=== PATIENT | male | born 1995 | race Caucasian/White ===

== ENCOUNTER 2022-12-26 17:06 | Emergency (ER) | payer SELFPAY ==
[2022-12-26] MEDS ORDERED: Cyclobenzaprine 10 MG Tab PO STA (17:34)
[2022-12-26] MEDS ORDERED: Ondansetron 4 MG Tab.DIS PO STA (17:34)
[2022-12-26] MEDS ORDERED: Acetaminophen 500 MG Tab PO STA (17:34)
[2022-12-26] MEDS ORDERED: Methadone 10 MG Tab PO STA (17:39)
== END 2022-12-26 18:16 | disposition home or self-care (01) ==
LOC: MW.ED 17:06
DX: F11.23 Opioid dependence with withdrawal (principal); F19.10 Other psychoactive substance abuse, uncomplicated
CPT/HCPCS: 99283; A9270

== ENCOUNTER 2022-12-27 13:51 | Emergency (ER) | payer SELFPAY ==
[2022-12-27] MEDS ORDERED: Sodium Chloride 0.9% 2.5 ML Syringe FLUSH PRN (13:59)
[2022-12-27] MEDS ORDERED: Sodium Chloride 0.9% 10 ML Syringe FLUSH PRN (13:59)
[2022-12-27] MEDS ORDERED: Sodium Chloride 0.9% 1,000 ML IV ONE ×2 (14:00→16:03)
[2022-12-27] MEDS ORDERED: Ondansetron 4 MG/2 ML SDV IVPUSH ONE (14:14)
[2022-12-27 14:34] LABS: BASOPHILS PERCENT AUTO 0.2 % (0.0-1.5); EOSINOPHILS PERCENT AUTO 0.1 % (0.0-7.0); HEMATOCRIT 44.3 % (38.0-50.0); HEMOGLOBIN 15.6 g/dL (13.0-17.0); LYMPHOCYTES ABSOLUTE AUTO 1.3 K/uL (0.6-2.4); LYMPHOCYTES PERCENT AUTO 14.4 % (16.0-40.0); MEAN CORPUSCULAR HEMOGLOBIN 31.2 pg (27.0-32.0); MEAN CORPUSCULAR HGB CONC 35.2 g/dL (31.0-37.0); MEAN CORPUSCULAR VOLUME 88.6 fL (80.0-98.0); MONOCYTES ABSOLUTE AUTO 0.4 K/uL (0.0-0.8); MONOCYTES PERCENT AUTO 4.7 % (0.0-15.0); NEUTROPHILS PERCENT AUTO 80.6 % (48.0-80.0); PLATELET COUNT,PLT 183 K/uL (150-400)
[2022-12-27 14:55] LABS: A/G RATIO 1.5 (0.9-1.6); ALANINE AMINOTRANSFERASE,ALT 27 IU/L (14-63); ALBUMIN 4.4 g/dL (3.4-5.0); ALKALINE PHOSPHATASE 88 U/L (46-116); ASPARTATE AMNIOTRANSFERASE,AST 13 IU/L (15-37); BILIRUBIN TOTAL 0.4 mg/dL (0.2-1.0); BLOOD UREA NITROGEN,BUN 14 mg/dL (7.0-18.0); CARBON DIOXIDE,CO2 24.9 mmol/L (21.0-32.0); CHLORIDE,CL 102 mmol/L (98-107); CREATININE 0.9 mg/dL (0.8-1.3); EST CRCL DRUG DOSING (CG) 94.08 mL/min; GLUCOSE RANDOM 132 mg/dL (74-106); LIPASE 46 U/L (73-393); POTASSIUM,K 3.8 mmol/L (3.5-5.1); PROTEIN TOTAL,TP 7.4 g/dL (6.4-8.2); SODIUM,NA 138 mmol/L (136-148)
[2022-12-27 14:56] LABS: ESTIMATED GFR 119 mL/min (>60); ETHANOL BLOOD MEDICAL < 3.0 mg/dL
[2022-12-27 15:30] LABS: AMPHETAMINES SCREEN, URINE PRESUMPTIVE POSITIVE (CUTOFF=500); BARBITURATE SCREEN,URINE NEGATIVE (CUTOFF=200); BENZODIAZEPINES SCREEN,URINE PRESUMPTIVE POSITIVE (CUTOFF=150); BUPRENORPHINE SCREEN,URINE NEGATIVE (CUTOFF=10); METHADONE SCREEN, URINE PRESUMPTIVE POSITIVE (CUTOFF=200); METHAMPHETAMINES SCREEN, URINE PRESUMPTIVE POSITIVE (CUTOFF=500); OXYCODONE SCREEN,URINE NEGATIVE (CUT0FF=100); PCP SCREEN,URINE NEGATIVE (CUTOFF=25); PROPOXYPHENE SCREEN,URINE NEGATIVE (CUTOFF=300); THC SCREEN,URINE 20 NG/ML PRESUMPTIVE POSITIVE (CUTOFF=50)
[2022-12-27] MEDS ORDERED: cloNIDine 0.1 MG Tab PO ONE (17:17)
== END 2022-12-27 17:52 | disposition home or self-care (01) ==
LOC: MW.ED 13:51
DX: F11.23 Opioid dependence with withdrawal (principal)
CPT/HCPCS: 36415; 80053; 80305; 80307; 83690; 85025; 93005; 96361; 96374; 99284; A9270; J2405; J3490; J7030; 93010

== ENCOUNTER 2023-10-29 22:25 | Observation (INO) | payer MEDICAID ==
[2023-10-29 22:52] LABS: BASOPHILS ABSOLUTE AUTO 0.02 K/uL (0.00-0.20); BASOPHILS PERCENT AUTO 0.2 % (0.0-1.0); EOSINOPHILS PERCENT AUTO 1.1 % (0.0-6.0); HEMATOCRIT 40.8 % (42.0-52.0); HEMOGLOBIN 14.6 g/dL (14.0-18.0); IMMATURE GRAN ABSOLUTE AUTO 0.02 K/uL (0.00-0.05); IMMATURE GRAN PERCENT AUTO 0.2 % (0.0-0.4); LYMPHOCYTES ABSOLUTE AUTO 2.48 K/uL (1.00-4.80); LYMPHOCYTES PERCENT AUTO 27.8 % (24.0-44.0); MEAN CORPUSCULAR HEMOGLOBIN 32.2 pg (28.0-32.0); MEAN CORPUSCULAR HGB CONC 35.8 g/dL (32.0-36.0); MEAN CORPUSCULAR VOLUME 89.9 fL (83.0-99.0); MEAN PLATELET VOLUME 8.6 fL (9.4-12.4); MONOCYTES ABSOLUTE AUTO 0.87 K/uL (0.00-0.80); MONOCYTES PERCENT AUTO 9.8 % (0.0-8.0); NEUTROPHILS ABSOLUTE AUTO 5.42 K/uL (1.80-7.70); NEUTROPHILS PERCENT AUTO 60.9 % (41.0-71.0); PLATELET COUNT,PLT 289 K/uL (150-400); RED BLOOD CELL COUNT 4.54 M/uL (4.52-5.90); WHITE BLOOD CELL COUNT,WBC 8.91 K/uL (3.9-11.3)
[2023-10-29] MEDS: Sodium Chloride 0.9% 10 ML Syringe FLUSH PRN (22:54)
[2023-10-29] MEDS: Sodium Chloride 0.9% 2.5 ML Syringe FLUSH PRN (22:54)
[2023-10-29] MEDS: Ondansetron 4 MG/2 ML SDV IVPUSH ONE (22:54)
[2023-10-29] MEDS: Pantoprazole 80 MG in Sodium Chloride 0.9% 10 ML IVPUSH ONE (22:54)
[2023-10-29] MEDS: Sodium Chloride 0.9% 1,000 ML IV ONE (22:54)
[2023-10-29] MEDS: Famotidine 20 MG/2 ML SDV IVPUSH ONE (22:54)
[2023-10-29] MEDS: Morphine 2 MG/ML SYRINGE IVPUSH ONE (22:56)
[2023-10-29] MEDS: droPERidol 5 MG/2 ML SDV IVPUSH ONE (23:08)
[2023-10-29 23:20] LABS: A/G RATIO 1.3 (0.9-1.6); ALANINE AMINOTRANSFERASE,ALT 37 IU/L (14-63); ALBUMIN 4.2 g/dL (3.4-5.0); ALKALINE PHOSPHATASE 72 U/L (46-116); ASPARTATE AMNIOTRANSFERASE,AST 25 IU/L (15-37); BILIRUBIN TOTAL 0.5 mg/dL (0.2-1.0); BLOOD UREA NITROGEN,BUN 17 mg/dL (7.0-18.0); CALCIUM 9.5 mg/dL (8.5-10.1); CARBON DIOXIDE,CO2 23.2 mmol/L (21.0-32.0); CHLORIDE,CL 99 mmol/L (98-107); CREATININE 0.8 mg/dL (0.8-1.3); EST CRCL DRUG DOSING (CG) 118.52 mL/min; GLUCOSE RANDOM 109 mg/dL (74-106); LIPASE 15 U/L (16-77); MAGNESIUM 1.9 mg/dL (1.8-2.4); POTASSIUM,K 3.2 mmol/L (3.5-5.1); PROTEIN TOTAL,TP 7.5 g/dL (6.4-8.2); SODIUM,NA 138 mmol/L (136-148)
[2023-10-29 23:29] LABS: ESTIMATED GFR 123 mL/min (>60)
[2023-10-29] MEDS: Ketorolac 30 MG/ML SDV IVPUSH ONE (23:38)
[2023-10-29] MEDS: Metoclopramide 10 MG/2 ML SDV IVPUSH ONE (23:40)
[2023-10-29] MEDS: diphenhydrAMINE 50 MG/ML SDV IVPUSH ONE (23:41)
[2023-10-29] MEDS: Iopamidol 755 MG/ML 500 ML Multipack Bottle IVPUSH ONE (23:59)
[2023-10-30] MEDS: Lactated Ringers 1,000 ML IV ONE (01:09)
[2023-10-30] MEDS ORDERED: Acetaminophen 325 MG Tab PO PRN (01:22)
[2023-10-30] MEDS ORDERED: Ketorolac 30 MG/ML SDV IVPUSH PRN (01:23)
[2023-10-30] MEDS ORDERED: Ondansetron 4 MG/2 ML SDV IVPUSH PRN (01:25)
[2023-10-30] MEDS: Potassium Chloride 20 MEQ Tab.ER PO ONE (01:46)
[2023-10-30] MEDS: Lactated Ringers 1,000 ML IV SCH (02:31)
[2023-10-30 06:25] LABS: BASOPHILS ABSOLUTE AUTO 0.03 K/uL (0.00-0.20); BASOPHILS PERCENT AUTO 0.4 % (0.0-1.0); EOSINOPHILS ABSOLUTE AUTO 0.11 K/uL (0.00-0.45); EOSINOPHILS PERCENT AUTO 1.6 % (0.0-6.0); HEMATOCRIT 37.3 % (42.0-52.0); HEMOGLOBIN 13.1 g/dL (14.0-18.0); IMMATURE GRAN ABSOLUTE AUTO 0.02 K/uL (0.00-0.05); IMMATURE GRAN PERCENT AUTO 0.3 % (0.0-0.4); LYMPHOCYTES ABSOLUTE AUTO 2.66 K/uL (1.00-4.80); LYMPHOCYTES PERCENT AUTO 38.6 % (24.0-44.0); MEAN CORPUSCULAR HEMOGLOBIN 32.6 pg (28.0-32.0); MEAN CORPUSCULAR HGB CONC 35.1 g/dL (32.0-36.0); MEAN CORPUSCULAR VOLUME 92.8 fL (83.0-99.0); MEAN PLATELET VOLUME 8.7 fL (9.4-12.4); MONOCYTES ABSOLUTE AUTO 0.73 K/uL (0.00-0.80); MONOCYTES PERCENT AUTO 10.6 % (0.0-8.0); NEUTROPHILS ABSOLUTE AUTO 3.35 K/uL (1.80-7.70); NEUTROPHILS PERCENT AUTO 48.5 % (41.0-71.0); PLATELET COUNT,PLT 247 K/uL (150-400); RED BLOOD CELL COUNT 4.02 M/uL (4.52-5.90)
[2023-10-30 06:49] LABS: CALCIUM 8.1 mg/dL (8.5-10.1); CARBON DIOXIDE,CO2 27.2 mmol/L (21.0-32.0); CREATININE 0.7 mg/dL (0.8-1.3); EST CRCL DRUG DOSING (CG) 135.45 mL/min; POTASSIUM,K 3.8 mmol/L (3.5-5.1)
[2023-10-30] MEDS: Pantoprazole 40 MG Tab.CR PO SCH (08:10)
== END 2023-10-30 12:10 | disposition home or self-care (01) ==
LOC: MW.ED 22:25 → MW.MS 10-30 01:03
PROVIDERS: ADMIT Family Medicine; ATTEND Family Medicine
DX: K52.9 Noninfective gastroenteritis and colitis, unspecified (principal); F17.210 Nicotine dependence, cigarettes, uncomplicated
CPT/HCPCS: 36415; 74177; 80048; 80053; 83690; 83735; 84484; 85025; 86850; 86900; 86901; 93005; 96361; 96374; 96375; 99285; A9270; C9113; J1200; J1790; J1885; J2405; J2765; J3490; J7030; J7120; Q9967; 93010; 99235; 99284; G0378

== ENCOUNTER 2023-10-31 03:53 | Emergency (ER) | payer MEDICAID ==
[2023-10-31] MEDS: Sodium Chloride 0.9% 1,000 ML IV ONE (04:15)
[2023-10-31] MEDS: droPERidol 5 MG/2 ML SDV IVPUSH ONE (04:15)
[2023-10-31] MEDS: Sodium Chloride 0.9% 2.5 ML Syringe FLUSH PRN (04:15)
[2023-10-31] MEDS: Ketorolac 30 MG/ML SDV IVPUSH ONE (04:15)
[2023-10-31] MEDS: Sodium Chloride 0.9% 10 ML Syringe FLUSH PRN (04:16)
[2023-10-31 04:34] LABS: BASOPHILS ABSOLUTE AUTO 0.03 K/uL (0.00-0.20); BASOPHILS PERCENT AUTO 0.3 % (0.0-1.0); EOSINOPHILS ABSOLUTE AUTO 0.21 K/uL (0.00-0.45); EOSINOPHILS PERCENT AUTO 1.9 % (0.0-6.0); HEMATOCRIT 42.7 % (42.0-52.0); HEMOGLOBIN 15.1 g/dL (14.0-18.0); IMMATURE GRAN ABSOLUTE AUTO 0.04 K/uL (0.00-0.05); IMMATURE GRAN PERCENT AUTO 0.4 % (0.0-0.4); LYMPHOCYTES ABSOLUTE AUTO 2.47 K/uL (1.00-4.80); LYMPHOCYTES PERCENT AUTO 22.5 % (24.0-44.0); MEAN CORPUSCULAR HEMOGLOBIN 32.5 pg (28.0-32.0); MEAN CORPUSCULAR HGB CONC 35.4 g/dL (32.0-36.0); MEAN CORPUSCULAR VOLUME 91.8 fL (83.0-99.0); MEAN PLATELET VOLUME 9.3 fL (9.4-12.4); MONOCYTES ABSOLUTE AUTO 0.97 K/uL (0.00-0.80); MONOCYTES PERCENT AUTO 8.8 % (0.0-8.0); NEUTROPHILS ABSOLUTE AUTO 7.27 K/uL (1.80-7.70); NEUTROPHILS PERCENT AUTO 66.1 % (41.0-71.0); PLATELET COUNT,PLT 304 K/uL (150-400); RED BLOOD CELL COUNT 4.65 M/uL (4.52-5.90); WHITE BLOOD CELL COUNT,WBC 10.99 K/uL (3.9-11.3)
[2023-10-31 04:49] LABS: A/G RATIO 1.1 (0.9-1.6); ALBUMIN 3.9 g/dL (3.4-5.0); BILIRUBIN TOTAL 0.4 mg/dL (0.2-1.0); CALCIUM 9.1 mg/dL (8.5-10.1); CARBON DIOXIDE,CO2 27.5 mmol/L (21.0-32.0); CREATININE 0.9 mg/dL (0.8-1.3); EST CRCL DRUG DOSING (CG) 101.01 mL/min; POTASSIUM,K 3.4 mmol/L (3.5-5.1); PROTEIN TOTAL,TP 7.3 g/dL (6.4-8.2)
[2023-10-31] MEDS: Iopamidol 755 MG/ML 500 ML Multipack Bottle IVPUSH ONE (04:50)
[2023-10-31 05:14] LABS: APPEARANCE,URINE CLEAR; BILIRUBIN,URINE NEGATIVE (NEGATIVE); COLOR,URINE YELLOW; GLUCOSE,URINE NEGATIVE (NEGATIVE); KETONES,URINE 15 mg/dL (NEGATIVE); LEUKOCYTE ESTERASE,URINE NEGATIVE (NEGATIVE); NITRITE,URINE NEGATIVE (NEGATIVE); OCCULT BLOOD,URINE NEGATIVE (NEGATIVE); PH,URINE 6.5 (5.0-8.0); PROTEIN,URINE NEGATIVE (NEGATIVE); UROBILINOGEN,URINE 0.2 EU/dL (<2.0)
[2023-10-31 05:25] LABS: AMPHETAMINES SCREEN, URINE PRESUMPTIVE POSITIVE (CUTOFF=500); BARBITURATE SCREEN,URINE NEGATIVE (CUTOFF=200); BENZODIAZEPINES SCREEN,URINE NEGATIVE (CUTOFF=150); BUPRENORPHINE SCREEN,URINE NEGATIVE (CUTOFF=10); METHADONE SCREEN, URINE NEGATIVE (CUTOFF=200); METHAMPHETAMINES SCREEN, URINE NEGATIVE (CUTOFF=500); OXYCODONE SCREEN,URINE NEGATIVE (CUT0FF=100); PCP SCREEN,URINE NEGATIVE (CUTOFF=25); THC SCREEN,URINE 20 NG/ML PRESUMPTIVE POSITIVE (CUTOFF=50)
== END 2023-10-31 05:36 | disposition home or self-care (01) ==
LOC: MW.ED 03:53
DX: K52.9 Noninfective gastroenteritis and colitis, unspecified (principal); F17.210 Nicotine dependence, cigarettes, uncomplicated; Z79.899 Other long term (current) drug therapy
CPT/HCPCS: 36415; 74177; 80053; 80305; 81003; 83690; 83735; 85025; 96361; 96374; 96375; 99284; J1790; J1885; J3490; J7030; Q9967

== ENCOUNTER 2023-11-01 10:17 | Emergency (ER) | payer MEDICAID ==
[2023-11-01] MEDS: Sodium Chloride 0.9% 1,000 ML IV ONE (10:55)
[2023-11-01] MEDS: Alum Hydro/Mag Hydro/Simeth XS 15 ML, Lidocaine 2% 5 ML PO ONE (10:56)
[2023-11-01 11:02] LABS: BASOPHILS ABSOLUTE AUTO 0.02 K/uL (0.00-0.20); BASOPHILS PERCENT AUTO 0.2 % (0.0-1.0); HEMATOCRIT 41.9 % (42.0-52.0); HEMOGLOBIN 14.7 g/dL (14.0-18.0); IMMATURE GRAN ABSOLUTE AUTO 0.03 K/uL (0.00-0.05); IMMATURE GRAN PERCENT AUTO 0.4 % (0.0-0.4); LYMPHOCYTES ABSOLUTE AUTO 0.62 K/uL (1.00-4.80); LYMPHOCYTES PERCENT AUTO 7.3 % (24.0-44.0); MEAN CORPUSCULAR HGB CONC 35.1 g/dL (32.0-36.0); MEAN CORPUSCULAR VOLUME 91.3 fL (83.0-99.0); MEAN PLATELET VOLUME 8.9 fL (9.4-12.4); MONOCYTES ABSOLUTE AUTO 0.25 K/uL (0.00-0.80); MONOCYTES PERCENT AUTO 2.9 % (0.0-8.0); NEUTROPHILS ABSOLUTE AUTO 7.62 K/uL (1.80-7.70); NEUTROPHILS PERCENT AUTO 89.2 % (41.0-71.0); PLATELET COUNT,PLT 319 K/uL (150-400); RED BLOOD CELL COUNT 4.59 M/uL (4.52-5.90); WHITE BLOOD CELL COUNT,WBC 8.54 K/uL (3.9-11.3)
[2023-11-01 11:28] LABS: A/G RATIO 1.1 (0.9-1.6); ALBUMIN 4.1 g/dL (3.4-5.0); BILIRUBIN TOTAL 0.2 mg/dL (0.2-1.0); CALCIUM 9.2 mg/dL (8.5-10.1); CARBON DIOXIDE,CO2 26.7 mmol/L (21.0-32.0); CREATININE 0.8 mg/dL (0.8-1.3); POTASSIUM,K 4.1 mmol/L (3.5-5.1); PROTEIN TOTAL,TP 7.7 g/dL (6.4-8.2)
[2023-11-01] MEDS: Sucralfate 1 GM Tab PO ONE (11:30)
[2023-11-01] MEDS: Pantoprazole 40 MG in Sodium Chloride 0.9% 10 ML IVPUSH ONE (11:30)
== END 2023-11-01 13:35 | disposition home or self-care (01) ==
LOC: MW.ED 10:17
DX: K29.70 Gastritis, unspecified, without bleeding (principal); Z75.8 Other problems related to medical facilities and other health care; Z79.899 Other long term (current) drug therapy
CPT/HCPCS: 36415; 76705; 80053; 83690; 85025; 96361; 96374; 99284; A9270; C9113; J3490; J7030

== ENCOUNTER 2024-10-09 07:05 | Day surgery (SDC) | payer MEDICAID, OTHER ==
[2024-10-09] MEDS ORDERED: Ondansetron 4 MG/2 ML SDV ONE (07:11)
[2024-10-09] MEDS ORDERED: Propofol 200 MG/20 ML SDV ONE (07:11)
[2024-10-09] MEDS ORDERED: Lidocaine 2% 5 ML SDV ONE (07:11)
[2024-10-09] MEDS ORDERED: Rocuronium Bromide 50 MG/5 ML Syringe ONE (07:11)
[2024-10-09] MEDS ORDERED: Ketorolac 30 MG/ML SDV ONE (07:11)
[2024-10-09] MEDS ORDERED: Sugammadex Sodium 200 MG/2 ML VIAL IV ONE (07:11)
[2024-10-09] MEDS ORDERED: fentaNYL 100 MCG/2 ML SDV ONE ×2 (07:11→09:31)
[2024-10-09] MEDS ORDERED: Dexamethasone 4 MG/ML 5 ML MDV ONE (07:11)
[2024-10-09] MEDS ORDERED: Ropivacaine 0.5% 5 MG/ML 30 ML SDV ONE (07:15)
[2024-10-09] MEDS ORDERED: Bupivacaine 0.25% 30 ML SDV ONE (07:15)
[2024-10-09] MEDS ORDERED: EPINEPHrine 1 MG/1 ML Amp ONE (07:15)
[2024-10-09] MEDS ORDERED: Bupivacaine 0.5% 30 ML SDV ONE (07:25)
[2024-10-09] MEDS: Pregabalin 75 MG Cap ONE (07:46)
[2024-10-09] MEDS ORDERED: Morphine 2 MG/ML SYRINGE IVPUSH PRN (08:05)
[2024-10-09] MEDS ORDERED: fentaNYL 50 MCG/ML SDV IVPUSH PRN (08:05)
[2024-10-09] MEDS ORDERED: Metoclopramide 10 MG/2 ML SDV IVPUSH PRN (08:05)
[2024-10-09] MEDS ORDERED: Ondansetron 4 MG/2 ML SDV IVPUSH PRN (08:05)
[2024-10-09] MEDS ORDERED: Naloxone 0.4 MG/ML SDV IVPUSH PRN (08:05)
[2024-10-09] MEDS ORDERED: Phenylephrine HCl In 0.9% NaCl 1 MG/10 ML Syringe IVPUSH PRN (08:05)
[2024-10-09] MEDS ORDERED: Albuterol 0.083% 2.5 MG/3 ML Neb Soln NEB PRN (08:05)
[2024-10-09] MEDS: Lactated Ringers 1,000 ML IV SCH (08:09)
[2024-10-09] MEDS ORDERED: ceFAZolin 1 GM Vial ONE (09:16)
[2024-10-09] MEDS: HYDROmorphone 1 MG/ML Syringe IVPUSH PRN (10:42)
[2024-10-10] MEDS ORDERED: Lactated Ringers 1,000 ML IV SCH (06:00)
[2024-10-10] MEDS ORDERED: Acetaminophen 500 MG Tab PO ONE (06:00)
[2024-10-10] MEDS ORDERED: Pregabalin 75 MG Cap PO SCH (06:00)
[2024-10-10] MEDS ORDERED: ceFAZolin 2 GM in Sodium Chloride 0.9% 50 ML IV ONE (07:45)
== END 2024-10-09 12:15 | disposition home or self-care (01) ==
LOC: MW.SDS 07:05
PROVIDERS: ATTEND Surgery
DX: K40.90 Unilateral inguinal hernia, without obstruction or gangrene, not specified as recurrent (principal); F17.210 Nicotine dependence, cigarettes, uncomplicated
CPT/HCPCS: 49650; A9270; C1781; J0665; J0690; J1100; J1171; J1885; J2003; J2704; J2795; J3010; J7120; 00830; J2405; J3490

== ENCOUNTER 2024-10-18 19:07 | Emergency (ER) | payer SELFPAY ==
[2024-10-18 19:26] LABS: BASOPHILS ABSOLUTE AUTO 0.07 K/uL (0.00-0.20); BASOPHILS PERCENT AUTO 0.9 % (0.0-1.0); EOSINOPHILS ABSOLUTE AUTO 0.42 K/uL (0.00-0.45); EOSINOPHILS PERCENT AUTO 5.7 % (0.0-6.0); HEMATOCRIT 43.3 % (42.0-52.0); HEMOGLOBIN 15.2 g/dL (14.0-18.0); IMMATURE GRAN ABSOLUTE AUTO 0.02 K/uL (0.00-0.05); IMMATURE GRAN PERCENT AUTO 0.3 % (0.0-0.4); LYMPHOCYTES ABSOLUTE AUTO 2.85 K/uL (1.00-4.80); LYMPHOCYTES PERCENT AUTO 38.6 % (24.0-44.0); MEAN CORPUSCULAR HEMOGLOBIN 33.3 pg (28.0-32.0); MEAN CORPUSCULAR HGB CONC 35.1 g/dL (32.0-36.0); MONOCYTES ABSOLUTE AUTO 0.52 K/uL (0.00-0.80); NEUTROPHILS ABSOLUTE AUTO 3.51 K/uL (1.80-7.70); NEUTROPHILS PERCENT AUTO 47.5 % (41.0-71.0); PLATELET COUNT,PLT 326 K/uL (150-400); RED BLOOD CELL COUNT 4.56 M/uL (4.52-5.90); WHITE BLOOD CELL COUNT,WBC 7.39 K/uL (3.9-11.3)
[2024-10-18] MEDS: Sodium Chloride 0.9% 1,000 ML IV ONE (19:30)
[2024-10-18] MEDS: Ondansetron 4 MG/2 ML SDV IVPUSH ONE (19:30)
[2024-10-18] MEDS: Morphine 4 MG/ML Syringe IVPUSH ONE (19:30)
[2024-10-18 19:41] LABS: A/G RATIO 1.4 (0.9-1.6); ALBUMIN 4.4 g/dL (3.4-5.0); BILIRUBIN TOTAL 0.2 mg/dL (0.2-1.0); CARBON DIOXIDE,CO2 27.6 mmol/L (21.0-32.0); CREATININE 0.8 mg/dL (0.8-1.3); EST CRCL DRUG DOSING (CG) 113.06 mL/min; POTASSIUM,K 4.3 mmol/L (3.5-5.1); PROTEIN TOTAL,TP 7.5 g/dL (6.4-8.2)
[2024-10-18] MEDS: Iopamidol 755 MG/ML 500 ML Multipack Bottle IVPUSH ONE (21:11)
[2024-10-18 22:10] LABS: APPEARANCE,URINE CLEAR; BILIRUBIN,URINE NEGATIVE (NEGATIVE); COLOR,URINE YELLOW; GLUCOSE,URINE NEGATIVE (NEGATIVE); KETONES,URINE NEGATIVE (NEGATIVE); LEUKOCYTE ESTERASE,URINE NEGATIVE (NEGATIVE); NITRITE,URINE NEGATIVE (NEGATIVE); OCCULT BLOOD,URINE NEGATIVE (NEGATIVE); PROTEIN,URINE NEGATIVE (NEGATIVE); UROBILINOGEN,URINE 0.2 EU/dL (<2.0)
[2024-10-18] MEDS: cefTRIAXone 500 MG in Lidocaine 1% 1 ML IM ONE (22:32)
[2024-10-18] MEDS: Doxycycline Monohydrate 100 MG Cap PO STA (22:32)
== END 2024-10-18 22:55 | disposition home or self-care (01) ==
LOC: MW.ED 19:07
DX: N45.1 Epididymitis (principal); Z75.3 Unavailability and inaccessibility of health-care facilities
CPT/HCPCS: 36415; 74177; 76870; 80053; 81003; 85025; 93976; 96361; 96372; 96374; 96375; 99284; J0696; J2003; J2270; J2405; J7030; Q9967; 99283